=== PATIENT | male | born 1945 | race Caucasian/White ===

== ENCOUNTER 2016-12-21 15:20 | Emergency (ER) | payer MEDICARE, OTHER ==
[2016-12-21] MEDS ORDERED: DOXYCYCLINE 100 MG TABLET PO STA (18:41)
--- NOTE | 2016-12-21 18:43 | ED Physician Documentation ---
PD HPI SKIN - Stated complaint Stated Complaint: LEFT ELBOW PX - Chief complaint Chief Complaint: Ext Problem - History obtained from History obtained from: Patient - History of Present Illness Timing - onset: How many days ago (few) Timing - duration: Days Timing - details: Gradual onset, Still present Location: LUE (elbow posteriorly) Quality / character: Painful, Discolored (red), Swelling. No: Draining Associated symptoms: No: Fever, N/V/D Contributing factors: Other (had abrasion of elbow a few weeks ago, healing okay. redness and tender the past few days. No drainage/sores.) Similar symptoms before: Has not had sx before Recently seen: Not recently seen Review of Systems Constitutional: denies: Fever, Chills Neurologic: denies: Focal weakness, Numbness PD PAST MEDICAL HISTORY - Past Medical History Cardiovascular: High cholesterol, Coronary artery disease - Past Surgical History Past Surgical History: Yes General: Appendectomy Cardiovascular: CABG - Present Medications Home Medications: Ambulatory Orders Medication Instructions Recorded Confirmed Atorvastatin [Lipitor] 40 mg PO DAILY 12/21/16 12/21/16 Doxycycline Hyclate 100 mg PO BID #14 tablet 12/21/16 Ezetimibe [Zetia] 10 mg PO DAILY 12/21/16 12/21/16 LORazepam [Ativan] 0.5 mg PO DAILY 12/21/16 12/21/16 Lisinopril 5 mg PO DAILY 12/21/16 12/21/16 - Allergies Allergies/Adverse Reactions: Allergies Allergy/AdvReac Type Severity Reaction Status Date / Time acetaminophen [From Vicodin] Allergy Itching Verified 12/21/16 15:29 hydrocodone bitartrate * Allergy Itching Verified 12/21/16 15:29 [From Vicodin] Penicillins Allergy Unknown Verified 12/21/16 15:29 - Social History Does the pt smoke?: No Smoking Status: Never smoker Does the pt drink ETOH?: Yes Does the pt have substance abuse?: No PD ED PE NORMAL - Vitals Vital signs reviewed: Yes - General General: Alert and oriented X 3, No acute distress, Well developed/nourished - Derm Derm: Normal color, Warm and dry - Extremities Extremities: Other (left elbow with local redness, warmth, tender. Mild effusion. No elbow joint effusion. Full ROM of the elbow. ) - Neuro Neuro: Alert and oriented X 3, No motor deficit, No sensory deficit Results - Vitals Vitals: Oxygen O2 Source Room air PD MEDICAL DECISION MAKING - ED course Complexity details: considered differential (local bursitis with redness, small abrasion. Mild amount fluid. Consider inflammatory vs. infectious. Not much enough fluid for tapping. ), d/w patient Departure - Departure Disposition: 01 Home, Self Care Clinical Impression: Olecranon bursitis, right elbow Condition: Stable Record reviewed to determine appropriate education?: Yes Instructions: ED Bursitis Elbow Olecranon Prescriptions: Doxycycline Hyclate 100 mg PO BID #14 tablet Comments: The elbow bursitis may be inflammatory and so take Aleve (naproxen) 1 tablet twice a day as an anti-inflammatory for 4-5 days. The concern would be infectious and so take doxycycline 100 mg twice daily for a week. Warm moist towels or soaks to the area periodically through the day to improve blood flow. Recheck if worsening symptoms. Otherwise recheck if not improved over the next several days. Discharge Date/Time: 12/21/16 18:56
[2016-12-21] MEDS ORDERED: DOXYCYCLINE 100 MG TABLET PO ONE (18:50)
[2016-12-21 18:53] VITALS: BP 154/88
== END 2016-12-21 18:56 | disposition home or self-care (01) ==
LOC: ED 15:20
DX: M70.21 Olecranon bursitis, right elbow (principal); E78.00 Pure hypercholesterolemia, unspecified; I25.10 Atherosclerotic heart disease of native coronary artery without angina pectoris; Z95.1 Presence of aortocoronary bypass graft; S50.311D Abrasion of right elbow, subsequent encounter; X58.XXXD Exposure to other specified factors, subsequent encounter
CPT/HCPCS: 99282; 99283; A9270